=== PATIENT | male | born 1980 | race African-American/Black ===

== ENCOUNTER 2017-02-28 00:08 | Emergency (ER) | payer MEDICAID ==
[~2017-02-28] VITALS: Ht 170.2 cm; Wt 96.0 kg
[2017-02-28] MEDS ORDERED: HYDROCODONE/APAP 7.5/325MG 1 TAB TABLET PO ONE (05:15)
[2017-02-28 05:27] VITALS: BP 145/80
== END 2017-02-28 09:25 | disposition home or self-care (01) ==
LOC: ER 00:09
DX: M48.02 Spinal stenosis, cervical region (principal); R51 Headache; M54.2 Cervicalgia; M25.561 Pain in right knee; M25.562 Pain in left knee; F12.10 Cannabis abuse, uncomplicated; F17.200 Nicotine dependence, unspecified, uncomplicated
CPT/HCPCS: 70450; 71020; 72100; 72125; 72141; 73130; 73562; 99284; Z7610

== ENCOUNTER 2017-10-17 18:34 | Emergency (ER) | payer MEDICAID ==
[~2017-10-17] VITALS: Ht 167.6 cm; Wt 55.0 kg
[2017-10-17] MEDS ORDERED: MORPHINE SULFATE 4 MG/ML CPJ (NOT FOR IM USE) IV STA (18:41)
[2017-10-17] MEDS ORDERED: ONDANSETRON HCL 4MG/2ML VIAL IV STA (18:41)
[2017-10-17] MEDS ORDERED: TETANUS, DIPHTHERIA, PERTUSSIS VAC/PF 0.5ML (>7YR OLD) IM ONE (18:45)
[2017-10-17] MEDS ORDERED: CEFAZOLIN 1000MG PREMIX 50 ML IV ONE (18:45)
[2017-10-17] MEDS ORDERED: SODIUM CHLORIDE 0.9% 1,000 ML IV ONE ×2 (18:48)
[2017-10-17] MEDS ORDERED: HYDROMORPHONE HCL/PF 2MG/ML CPJ IV ONE (19:15)
[2017-10-17 19:32] LABS: BASOPHILS % 0.9 % (0.0-2.0); EOSINOPHILS % 1.6 % (0.0-5.0); HEMATOCRIT. 42.4 % (42.0-52.0); HEMOGLOBIN. 14.4 g/dL (14.0-18.0); LYMPHOCYTES % 38.9 % (20.0-50.0); MEAN CORPUSCULAR HEMOGLOBIN 30.1 pg (28.0-32.0); MEAN CORPUSCULAR VOLUME 88.9 fL (80.0-94.0); MONOCYTES % 8.6 % (2.0-8.0); PLATELET 242 x1000/uL (130-400); RED BLOOD CELL COUNT 4.77 mill/uL (4.7-6.1); RED CELL DISTRIBUTION WIDTH 13.8 % (11.6-14.6)
[2017-10-17 19:45] LABS: CARBON DIOXIDE 29 mEq/L (21-32); CHLORIDE 103 mEq/L (98-107)
[2017-10-17 19:54] LABS: INR 1.1; PARTIAL THROMBOPLASTIN TIME 25.1 sec (23.4-31.0); PROTHROMBIN TIME 11.1 sec (9.4-11.6)
[2017-10-17 21:45] VITALS: BP 155/101
== END 2017-10-17 22:57 | disposition short-term general hospital (02) ==
LOC: ER 18:53
DX: S82.391B Other fracture of lower end of right tibia, initial encounter for open fracture type I or II (principal); R79.1 Abnormal coagulation profile; W34.00XA Accidental discharge from unspecified firearms or gun, initial encounter; Y93.01 Activity, walking, marching and hiking; Y92.89 Other specified places as the place of occurrence of the external cause; Y99.8 Other external cause status
CPT/HCPCS: 29125; 36415; 71010; 73610; 73630; 80048; 85025; 85610; 85730; 86850; 86900; 86901; 90471; 90715; 93005; 96365; 96375; 99285; A4217; J0690; J1170; J2270; J2405; Z7610; J7030

== ENCOUNTER 2019-07-24 00:03 | Emergency (ER) | payer MEDICAID ==
[~2019-07-24] VITALS: Ht 180.3 cm; Wt 104.0 kg
[2019-07-24] MEDS ORDERED: MORPHINE SULFATE 4 MG/ML CPJ (NOT FOR IM USE) IV STA (00:33)
[2019-07-24] MEDS ORDERED: ONDANSETRON HCL 4MG/2ML INJ IV STA (00:33)
[2019-07-24] MEDS ORDERED: SODIUM CHLORIDE 0.9% 1,000 ML IV ONE (00:33)
[2019-07-24] MEDS ORDERED: CEFAZOLIN 1000MG PREMIX 50 ML IV ONE ×2 (00:45→02:45)
[2019-07-24] MEDS ORDERED: TETANUS, DIPHTHERIA, PERTUSSIS VAC/PF 0.5ML (>7YR OLD) IM ONE (00:45)
[2019-07-24] MEDS ORDERED: ALBUTEROL (0.5%) 2.5MG/0.5ML NEB HHN ONE (01:00)
[2019-07-24 01:18] LABS: BASOPHILS % 0.6 % (0.0-2.0); HEMATOCRIT. 45.9 % (42.0-52.0); HEMOGLOBIN. 15.9 g/dL (14.0-18.0); LYMPHOCYTES % 33.3 % (20.0-50.0); MEAN CORPUSCULAR HEMOGLOBIN 31.1 pg (28.0-32.0); MEAN CORPUSCULAR VOLUME 89.5 fL (80.0-94.0); MEAN PLATELET VOLUME 9.4 fl (7.4-10.4); MONOCYTES % 7.1 % (2.0-8.0); PLATELET 212 x1000/uL (130-400); RED BLOOD CELL COUNT 5.13 mill/uL (4.7-6.1); RED CELL DISTRIBUTION WIDTH 14.5 % (11.6-14.6)
[2019-07-24 01:27] LABS: PARTIAL THROMBOPLASTIN TIME 25.2 sec (23.4-31.0); PROTHROMBIN TIME 9.9 sec (9.6-11.0)
[2019-07-24 01:30] LABS: CHLORIDE 104 mEq/L (98-107)
[2019-07-24 04:28] VITALS: BP 140/79
== END 2019-07-24 04:34 ==
LOC: ER 00:03
DX: S02.42XA Fracture of alveolus of maxilla, initial encounter for closed fracture (principal); S01.112A Laceration without foreign body of left eyelid and periocular area, initial encounter; S02.609A Fracture of mandible, unspecified, initial encounter for closed fracture; M26.30 Unspecified anomaly of tooth position of fully erupted tooth or teeth; F17.200 Nicotine dependence, unspecified, uncomplicated; Y08.89XA Assault by other specified means, initial encounter; Y93.89 Activity, other specified; Y92.9 Unspecified place or not applicable; Z71.6 Tobacco abuse counseling
CPT/HCPCS: 36415; 70450; 70486; 71045; 72125; 72170; 80053; 83690; 85025; 85610; 85730; 86850; 86900; 86901; 90471; 90715; 96365; 96375; 99291; 99292; 99406; J0690; J2270; J2405; J7030; Z7610

== ENCOUNTER 2021-12-20 18:37 | Emergency (ER) | payer MEDICAID ==
[~2021-12-20] VITALS: Ht 177.8 cm; Wt 100.0 kg
[2021-12-20] MEDS ORDERED: SODIUM CHLORIDE 0.9% 1,000 ML IV ONE ×2 (20:45→22:00)
[2021-12-20 21:31] LABS: BASOPHILS % 0.8 % (0.0-2.0); EOSINOPHILS % 0.6 % (0.0-5.0); HEMATOCRIT. 40.1 % (42.0-52.0); HEMOGLOBIN. 13.5 g/dL (14.0-18.0); MEAN CORPUSCULAR HEMOGLOBIN 28.3 pg (28.0-32.0); MEAN CORPUSCULAR VOLUME 84.1 fL (80.0-94.0); MEAN PLATELET VOLUME 8.1 fl (7.4-10.4); MONOCYTES % 11.8 % (2.0-8.0); NEUTROPHILS % 76.8 % (40.0-76.0); PLATELET 361 x1000/uL (130-400); RED BLOOD CELL COUNT 4.77 mill/uL (4.7-6.1); RED CELL DISTRIBUTION WIDTH 13.9 % (11.6-14.6)
[2021-12-20 21:39] LABS: CHLORIDE 98 mEq/L (98-107)
[2021-12-20] MEDS ORDERED: KETOROLAC 15MG/ML VIAL IM ONE (22:00)
[2021-12-20] MEDS ORDERED: DEXAMETHASONE 10 MG/ML VIAL IV ONE (22:00)
[2021-12-20] MEDS: AMPICILLIN SOD/SULBACTAM NA 3 G in SODIUM CHLORIDE 0.9% 100 ML IV SCH (22:17)
[2021-12-20] MEDS ORDERED: IOHEXOL-300 100 ML BOTTLE ONE (23:37)
[2021-12-21] MEDS ORDERED: LIDOCAINE HCL 1% 20ML VIAL (Pyxis) INJ INFIL NR (01:00)
[2021-12-21] MEDS: AMPICILLIN SOD/SULBACTAM NA 3 G in SODIUM CHLORIDE 0.9% 100 ML IV SCH (04:21)
[2021-12-21] MEDS ORDERED: IOHEXOL-300 100 ML BOTTLE ONE (11:28)
[2021-12-21] MEDS ORDERED: CEPH500C2 MT ×2 (12:28)
[2021-12-21] MEDS ORDERED: AMOX-424 MT (12:29)
[2021-12-21 14:30] VITALS: BP 145/91
== END 2021-12-21 14:50 | disposition home or self-care (01) ==
LOC: ER 18:37
DX: J36 Peritonsillar abscess (principal); I10 Essential (primary) hypertension
CPT/HCPCS: 10060; 36415; 70487; 70491; 80053; 83605; 85025; 87040; 87426; 96361; 96365; 96366; 96372; 96375; 99291; J0295; J1100; J1885; J3490; J7030; J7050; Q9967

== ENCOUNTER 2022-08-22 17:12 | Emergency (ER) | payer MEDICAID ==
[~2022-08-22] VITALS: Ht 175.3 cm; Wt 82.0 kg
[~2022-08-22 17:12] MED LIST: AMOX-424 MT
[2022-08-22 17:30] VITALS: BP 156/100
[2022-08-22] MEDS ORDERED: CLIN-194 MT (18:50)
[2022-08-22] MEDS ORDERED: CEFTRIAXONE 1 G PREMIX 50 ML IV ONE (19:00)
[2022-08-22] MEDS ORDERED: AZITHROMYCIN 500 MG TABLET PO ONE (19:00)
[2022-08-22] MEDS ORDERED: CEFTRIAXONE SODIUM 1 G/VIAL IM NR (20:30)
== END 2022-08-22 20:33 | disposition home or self-care (01) ==
LOC: ER 17:12
DX: J36 Peritonsillar abscess (principal); R30.0 Dysuria; I10 Essential (primary) hypertension; Z20.2 Contact with and (suspected) exposure to infections with a predominantly sexual mode of transmission
CPT/HCPCS: 96372; 99283; J0696